=== PATIENT | male | born 1945 | race Caucasian/White ===

== ENCOUNTER → 2016-10-22 | Outpatient (CLI) | payer BC, MEDICARE, OTHER ==
[~2016-10-22] MED LIST: ATACAND HCT 321 TAB PO; ATACAND PO; ATENOLOL25 MG PO; CELEBREX200 MG PO; HCTZ 25MG TAB25 MG PO; HCTZ PO; HYDROCODONE/IBU1 TA1 PO; HYTRIN 2MG CAPSU2 MG PO; LORTAB 7.5/5001 TAB PO; MEDROL 4MG DOSPA4 MG PO; PERCOCET 325 MG1 TA2 PO; PROSCAR 5MG5 MG PO; PROSCAR5 MG PO; PROVENTIL0.09 MG/A1 IH; RANITIDINE150 MG PO; SOMA 350MG350 MG/TAB PO; TENORMIN 2525 MG/TAB PO; TERAZOSIN HCL2 M1 PO; VERAPAMIL HCL180 MG PO; ZANTAC 150MG T150 MG PO; ZOCOR 20MG20 MG PO; ZOCOR20 MG PO
== END ==
LOC: COL.LAB 13:49
DX: M79.605 Pain in left leg (principal)

== ENCOUNTER 2017-11-24 03:11 | Inpatient (IN) | payer BC, MEDICARE, OTHER ==
[~2017-11-24] VITALS: Ht 175.3 cm; Wt 94.6 kg
[~2017-11-24 03:11] MED LIST changes: -HYTRIN 2MG CAPSU2 MG PO; +HYTRIN 5MG C5 MG/CAP PO
[2017-11-24 04:16] LABS: BASO % 0.4 % (0.0-2.0); EOS % 0.2 % (0-4.0); GRAN # 7.7 (1.4-6.5); GRAN % 83.3 % (42.2-75.2); HEMATOCRIT 43.1 % (42.0-52.0); HEMOGLOBIN 14.7 g/dl (13.5-18.0); LYMPH # 0.5 (1.2-3.4); LYMPH % 5.3 % (20.0-51.0); MEAN CELL VOLUME 94 fl (80.0-100.0); MEAN CORPUSCULAR HEMOGLOBIN 32 pg (27.0-31.0); MEAN CORPUSCULAR HGB CONC 34 g/dl (33.0-37.0); MEAN PLATELET VOLUME 10.4 fl (7.4-10.4); MONO % 10.5 % (1.7-9.3); PLATELET COUNT 144 K/mm3 (130-400); RED BLOOD COUNT 4.57 M/mm3 (4.20-5.60); REDCELL DISTRIBUTION WIDTH-CV 13.7 % (11.5-14.5)
[2017-11-24] MEDS ORDERED: NORVASC 5MG5 MG/TAB PO (04:23)
[2017-11-24] MEDS ORDERED: 00186-0372-20 IH (04:23)
[2017-11-24] MEDS ORDERED: TAMBOCOR 1100 MG/TAB PO (04:28)
[2017-11-24] MEDS ORDERED: NEURONTIN300 MG/CAP PO ×2 (04:29)
[2017-11-24] MEDS ORDERED: PRAVACHOL80 MG PO (04:30)
[2017-11-24] MEDS ORDERED: SINGULAIR 110 MG/TAB PO (04:30)
[2017-11-24] MEDS ORDERED: XARELTO20 MG PO (04:31)
[2017-11-24 04:32] LABS: ALANINE AMINOTRANSFERASE 208 U/L (21-72); ALBUMIN 4.1 gm/dL (3.5-5.0); ALKALINE PHOSPHATASE 248 U/L (50-136); ANION GAP 11 mmol/L (7-16); AST,SGOT 148 U/L (15-37); BLOOD UREA NITROGEN 16 mg/dL (9-20); CALCIUM 9.4 mg/dL (8.4-10.2); CARBON DIOXIDE 26 mmol/L (22-30); CHLORIDE 101 mmol/L (98-107); CREATININE, serum 0.99 mg/dL (0.66-1.25); GLUCOSE 152 mg/dL (74-106); LIPASE 53 U/L (23-300); POTASSIUM 3.5 mmol/L (3.4-5.0); SODIUM 139 mmol/L (137-145); TOTAL PROTEIN 7.9 gm/dL (6.4-8.2)
[2017-11-24 04:42] LABS: TROPONIN-I < 0.012 ng/mL (0.000-0.034)
[2017-11-24 05:05] LABS: COLLECTION METHOD CLEAN CATCH
[2017-11-24 05:14] LABS: MUCOUS Present /lpf; PH 5 (5-8); SQUAMOUS EPITHELIAL 0-2 /hpf; URINE APPEARANCE Clear; URINE BACTERIA None Seen /hpf; URINE BILIRUBIN Positive (NEGATIVE); URINE BLOOD Negative (NEGATIVE); URINE CALCIUM OXALATE CRYSTAL Present /hpf; URINE COLOR Amber; URINE GLUCOSE Negative (NEGATIVE); URINE KETONE Negative (NEGATIVE); URINE LEUKOCYTE ESTERASE Negative (NEGATIVE); URINE NITRATE Negative (NEGATIVE); URINE PROTEIN(semi-quant) Negative (NEGATIVE); URINE UROBILINOGEN >=4.0 mg/dL (NEGATIVE)
[2017-11-24 08:33] VITALS: BP 122/73; PULSE 63; TEMP 98.1
[2017-11-24 10:11] LABS: INR 1.8 (0.8-3.0); PROTHROMBIN TIME 20.3 SECONDS (9.7-12.8)
[2017-11-24 11:51] VITALS: BP 124/72; PULSE 68; TEMP 98.1
[2017-11-24 15:31] VITALS: BP 111/66; PULSE 66; TEMP 98.1
[2017-11-24 19:32] VITALS: BP 122/84; PULSE 7; TEMP 98
[2017-11-24 23:23] VITALS: BP 135/75; PULSE 86; TEMP 98.3
[2017-11-25] VITALS (11 sets, daily range): BP systolic 102–158; BP diastolic 52–70; PULSE 69–92; TEMP 97.9–103.3
[2017-11-25 07:14] LABS: BASO % 0.4 % (0.0-2.0); EOS # 0.1 (0.0-0.7); EOS % 0.8 % (0-4.0); GRAN # 6.9 (1.4-6.5); GRAN % 83.3 % (42.2-75.2); HEMATOCRIT 40.4 % (42.0-52.0); HEMOGLOBIN 13.3 g/dl (13.5-18.0); LYMPH # 0.7 (1.2-3.4); LYMPH % 7.9 % (20.0-51.0); MEAN CELL VOLUME 97 fl (80.0-100.0); MEAN CORPUSCULAR HEMOGLOBIN 32 pg (27.0-31.0); MEAN CORPUSCULAR HGB CONC 33 g/dl (33.0-37.0); MEAN PLATELET VOLUME 10.8 fl (7.4-10.4); MONO # 0.6 (0.1-0.6); MONO % 7.2 % (1.7-9.3); PLATELET COUNT 146 K/mm3 (130-400); RED BLOOD COUNT 4.16 M/mm3 (4.20-5.60); REDCELL DISTRIBUTION WIDTH-CV 14.2 % (11.5-14.5)
[2017-11-25 07:26] LABS: ALBUMIN 3.8 gm/dL (3.5-5.0); BILIRUBIN,TOTAL 8.2 mg/dL (0.0-1.0); CALCIUM 8.8 mg/dL (8.4-10.2); CREATININE, serum 1.4 mg/dL (0.66-1.25); POTASSIUM 3.7 mmol/L (3.4-5.0); TOTAL PROTEIN 7.2 gm/dL (6.4-8.2)
[2017-11-25 07:56] LABS: PSA-TOTAL 1.9 ng/mL (0-4)
[2017-11-25 08:04] LABS: COLLECTION METHOD CLEAN CATCH
[2017-11-25 08:12] LABS: MUCOUS Present /lpf; PH 5 (5-8); SQUAMOUS EPITHELIAL None Seen /hpf; URINE APPEARANCE Clear; URINE BACTERIA None Seen /hpf; URINE BILIRUBIN Positive (NEGATIVE); URINE BLOOD Negative (NEGATIVE); URINE COLOR Amber; URINE GLUCOSE Negative (NEGATIVE); URINE KETONE Negative (NEGATIVE); URINE LEUKOCYTE ESTERASE Negative (NEGATIVE); URINE NITRATE Negative (NEGATIVE); URINE PROTEIN(semi-quant) 1+ (NEGATIVE); URINE RBC 0-2 /hpf
[2017-11-25 11:54] LABS: INR 1.2 (0.8-3.0); PROTHROMBIN TIME 13.8 SECONDS (9.7-12.8)
[2017-11-26] VITALS (7 sets, daily range): BP systolic 106–173; BP diastolic 48–87; PULSE 69–100; TEMP 98.2–100.3
[2017-11-26 06:56] LABS: BASO % 0.2 % (0.0-2.0); EOS # 0.1 (0.0-0.7); EOS % 1.3 % (0-4.0); GRAN # 7.8 (1.4-6.5); GRAN % 79.2 % (42.2-75.2); LYMPH # 1.1 (1.2-3.4); LYMPH % 10.6 % (20.0-51.0); MEAN CELL VOLUME 99 fl (80.0-100.0); MEAN CORPUSCULAR HGB CONC 32 g/dl (33.0-37.0); MEAN PLATELET VOLUME 10.8 fl (7.4-10.4); MONO # 0.8 (0.1-0.6); MONO % 8.1 % (1.7-9.3); PLATELET COUNT 128 K/mm3 (130-400); RED BLOOD COUNT 3.41 M/mm3 (4.20-5.60); REDCELL DISTRIBUTION WIDTH-CV 14.3 % (11.5-14.5)
[2017-11-26 07:01] LABS: ALBUMIN 2.9 gm/dL (3.5-5.0); BILIRUBIN,TOTAL 7.2 mg/dL (0.0-1.0); CALCIUM 8.3 mg/dL (8.4-10.2); CREATININE, serum 1.06 mg/dL (0.66-1.25); POTASSIUM 3.5 mmol/L (3.4-5.0); TOTAL PROTEIN 5.8 gm/dL (6.4-8.2)
[2017-11-26 07:07] LABS: HEMATOCRIT 33.6 % (42.0-52.0); HEMOGLOBIN 10.9 g/dl (13.5-18.0); MEAN CORPUSCULAR HEMOGLOBIN 32 pg (27.0-31.0)
[2017-11-27] VITALS (8 sets, daily range): BP systolic 134–157; BP diastolic 64–86; PULSE 63–84; TEMP 98.2–100.5
[2017-11-27 06:45] LABS: BILIRUBIN,TOTAL 7.6 mg/dL (0.0-1.0); CALCIUM 8.4 mg/dL (8.4-10.2); CREATININE, serum 0.94 mg/dL (0.66-1.25); POTASSIUM 3.1 mmol/L (3.4-5.0); TOTAL PROTEIN 6.2 gm/dL (6.4-8.2)
[2017-11-27 06:52] LABS: ALBUMIN 3.1 gm/dL (3.5-5.0)
[2017-11-27 08:56] LABS: BASO # 0.1 (0.0-0.2); BASO % 0.5 % (0.0-2.0); EOS # 0.2 (0.0-0.7); GRAN # 7.2 (1.4-6.5); GRAN % 78.1 % (42.2-75.2); HEMATOCRIT 34.1 % (42.0-52.0); HEMOGLOBIN 11.5 g/dl (13.5-18.0); LYMPH # 0.9 (1.2-3.4); LYMPH % 9.6 % (20.0-51.0); MEAN CELL VOLUME 95 fl (80.0-100.0); MEAN CORPUSCULAR HEMOGLOBIN 32 pg (27.0-31.0); MEAN CORPUSCULAR HGB CONC 34 g/dl (33.0-37.0); MEAN PLATELET VOLUME 11.3 fl (7.4-10.4); MONO # 0.8 (0.1-0.6); MONO % 9.1 % (1.7-9.3); PLATELET COUNT 146 K/mm3 (130-400); RED BLOOD COUNT 3.58 M/mm3 (4.20-5.60); REDCELL DISTRIBUTION WIDTH-CV 14.4 % (11.5-14.5)
[2017-11-27 10:15] LABS: HEMOGLOBIN 11.2 g/dl (13.5-18.0)
[2017-11-27 10:16] LABS: HEMATOCRIT 33.3 % (42.0-52.0)
[2017-11-28 04:12] VITALS: BP 159/90; PULSE 94; TEMP 97.8
[2017-11-28 07:30] LABS: BASO % 0.3 % (0.0-2.0); EOS # 0.1 (0.0-0.7); EOS % 0.5 % (0-4.0); GRAN # 8.5 (1.4-6.5); GRAN % 80.9 % (42.2-75.2); HEMATOCRIT 35.1 % (42.0-52.0); HEMOGLOBIN 11.7 g/dl (13.5-18.0); LYMPH # 0.8 (1.2-3.4); LYMPH % 7.8 % (20.0-51.0); MEAN CELL VOLUME 94 fl (80.0-100.0); MEAN CORPUSCULAR HEMOGLOBIN 31 pg (27.0-31.0); MEAN CORPUSCULAR HGB CONC 33 g/dl (33.0-37.0); MEAN PLATELET VOLUME 10.8 fl (7.4-10.4); MONO % 9.6 % (1.7-9.3); PLATELET COUNT 154 K/mm3 (130-400); RED BLOOD COUNT 3.74 M/mm3 (4.20-5.60); REDCELL DISTRIBUTION WIDTH-CV 14.3 % (11.5-14.5)
[2017-11-28 07:39] LABS: INR 1.1 (0.8-3.0); PROTHROMBIN TIME 12.8 SECONDS (9.7-12.8)
[2017-11-28 07:43] LABS: ALBUMIN 3.2 gm/dL (3.5-5.0); BILIRUBIN,TOTAL 7.8 mg/dL (0.0-1.0); CALCIUM 8.5 mg/dL (8.4-10.2); CREATININE, serum 0.93 mg/dL (0.66-1.25); POTASSIUM 3.5 mmol/L (3.4-5.0); TOTAL PROTEIN 6.6 gm/dL (6.4-8.2)
[2017-11-28 08:00] VITALS: BP 157/75; PULSE 93; TEMP 99.3
[2017-11-28 11:11] VITALS: BP 147/72; PULSE 94; TEMP 98.6
[2017-11-28 16:07] VITALS: BP 175/83; PULSE 76; TEMP 99.1
[2017-11-28 19:37] VITALS: BP 154/76; PULSE 78; TEMP 98.9
[2017-11-28 23:34] VITALS: BP 157/82; PULSE 85; TEMP 100.2
[2017-11-29] VITALS (10 sets, daily range): BP systolic 128–157; BP diastolic 73–89; PULSE 70–76; TEMP 98–98.9
[2017-11-29 06:48] LABS: BASO % 0.2 % (0.0-2.0); EOS # 0.1 (0.0-0.7); EOS % 0.6 % (0-4.0); GRAN # 7.5 (1.4-6.5); GRAN % 79.4 % (42.2-75.2); HEMOGLOBIN 11.2 g/dl (13.5-18.0); LYMPH # 0.8 (1.2-3.4); LYMPH % 8.4 % (20.0-51.0); MEAN CELL VOLUME 92 fl (80.0-100.0); MEAN CORPUSCULAR HEMOGLOBIN 32 pg (27.0-31.0); MEAN CORPUSCULAR HGB CONC 35 g/dl (33.0-37.0); MEAN PLATELET VOLUME 11.1 fl (7.4-10.4); MONO % 10.1 % (1.7-9.3); PLATELET COUNT 166 K/mm3 (130-400); RED BLOOD COUNT 3.53 M/mm3 (4.20-5.60); REDCELL DISTRIBUTION WIDTH-CV 14.6 % (11.5-14.5)
[2017-11-29 07:01] LABS: HEMATOCRIT 32.5 % (42.0-52.0)
[2017-11-29 07:03] LABS: ALBUMIN 3.1 gm/dL (3.5-5.0); BILIRUBIN,TOTAL 9.9 mg/dL (0.0-1.0); CALCIUM 8.7 mg/dL (8.4-10.2); CREATININE, serum 0.91 mg/dL (0.66-1.25); POTASSIUM 3.5 mmol/L (3.4-5.0); TOTAL PROTEIN 6.4 gm/dL (6.4-8.2)
== END 2017-11-29 20:15 | disposition short-term general hospital (02) | DRG 444 ==
LOC: COL.ER 03:11 → SURG 07:53
PROVIDERS: Emergency Medicine; Hospitalist; Internal Medicine Gastroenterology; Nurse Practitioner Family; Physician Assistant; Surgery
PROC: 0FJB8ZZ Inspection of Hepatobiliary Duct, Via Natural or Artificial Opening Endoscopic (ICD-10-PCS; 2017-11-25)
PROC: 0F798DZ Dilation of Common Bile Duct with Intraluminal Device, Via Natural or Artificial Opening Endoscopic (ICD-10-PCS; principal; 2017-11-29 15:00)
DX: K83.8 Other specified diseases of biliary tract (principal); J18.9 Pneumonia, unspecified organism; R17 Unspecified jaundice; D62 Acute posthemorrhagic anemia; K92.1 Melena; N17.9 Acute kidney failure, unspecified; K91.840 Postprocedural hemorrhage of a digestive system organ or structure following a digestive system procedure; J44.0 Chronic obstructive pulmonary disease with (acute) lower respiratory infection; K80.00 Calculus of gallbladder with acute cholecystitis without obstruction; R50.9 Fever, unspecified; N20.0 Calculus of kidney; R31.9 Hematuria, unspecified; I10 Essential (primary) hypertension; I48.91 Unspecified atrial fibrillation; E87.6 Hypokalemia
CPT/HCPCS: 99223-AI; 99233-AI; 99239; A9284; C1769; C2625; G0103; J0456; J1650; J2250; J2270; J2405; J2543; J2704; J3010; J3480; J7030; J7050; J7120; Q9967

== ENCOUNTER 2017-12-15 17:45 | Emergency (ER) | payer BC, MEDICARE, OTHER ==
[~2017-12-15] VITALS: Ht 175.3 cm; Wt 92.3 kg
[~2017-12-15 17:45] MED LIST changes: +00186-0372-20 IH; +NEURONTIN300 MG/CAP PO; +NORVASC 5MG5 MG/TAB PO; +PRAVACHOL80 MG PO; +SINGULAIR 110 MG/TAB PO; +TAMBOCOR 1100 MG/TAB PO; +XARELTO20 MG PO
[2017-12-15 17:53] VITALS: TEMP 98.9
[2017-12-15 18:23] LABS: COLLECTION METHOD CLEAN CATCH
[2017-12-15 18:32] LABS: PROTHROMBIN TIME 11.6 SECONDS (9.7-12.8)
[2017-12-15 18:33] LABS: BASO # 0.1 (0.0-0.2); BASO % 0.7 % (0.0-2.0); EOS # 0.2 (0.0-0.7); GRAN # 6.3 (1.4-6.5); GRAN % 68.3 % (42.2-75.2); HEMATOCRIT 35.1 % (42.0-52.0); HEMOGLOBIN 11.6 g/dl (13.5-18.0); LYMPH # 1.5 (1.2-3.4); LYMPH % 16.8 % (20.0-51.0); MEAN CELL VOLUME 98 fl (80.0-100.0); MEAN CORPUSCULAR HEMOGLOBIN 32 pg (27.0-31.0); MEAN CORPUSCULAR HGB CONC 33 g/dl (33.0-37.0); MEAN PLATELET VOLUME 10.4 fl (7.4-10.4); MONO % 11.1 % (1.7-9.3); PLATELET COUNT 289 K/mm3 (130-400); RED BLOOD COUNT 3.59 M/mm3 (4.20-5.60); REDCELL DISTRIBUTION WIDTH-CV 14.6 % (11.5-14.5)
[2017-12-15 18:34] LABS: PH 6 (5-8); SQUAMOUS EPITHELIAL None Seen /hpf; URINE APPEARANCE Clear; URINE BACTERIA None Seen /hpf; URINE BILIRUBIN Negative (NEGATIVE); URINE BLOOD Negative (NEGATIVE); URINE COLOR Yellow; URINE GLUCOSE Negative (NEGATIVE); URINE KETONE Negative (NEGATIVE); URINE LEUKOCYTE ESTERASE Negative (NEGATIVE); URINE NITRATE Negative (NEGATIVE); URINE PROTEIN(semi-quant) Negative (NEGATIVE); URINE RBC 0-2 /hpf; URINE UROBILINOGEN Negative (NEGATIVE)
[2017-12-15 18:35] LABS: PARTIAL THROMBOPLASTIN TIME 40.5 SECONDS (26.0-37.0)
[2017-12-15 18:40] LABS: ALBUMIN 3.8 gm/dL (3.5-5.0); BILIRUBIN,TOTAL 1.7 mg/dL (0.0-1.0); C-REACTIVE PROTEIN 5.5 mg/dL (0.0-0.9); CALCIUM 9.4 mg/dL (8.4-10.2); CREATININE, serum 1.02 mg/dL (0.66-1.25); TOTAL PROTEIN 7.5 gm/dL (6.4-8.2)
[2017-12-15] MEDS ORDERED: 00186-0372-20 IH (18:47)
[2017-12-15] MEDS ORDERED: LOVENOX 100100 MG/ML SQ (18:48)
[2017-12-15 19:28] VITALS: BP 113/88; PULSE 84
== END 2017-12-15 19:30 | disposition home or self-care (01) ==
LOC: COL.ER 17:45
PROVIDERS: Emergency Medicine
DX: K74.60 Unspecified cirrhosis of liver (principal); C22.9 Malignant neoplasm of liver, not specified as primary or secondary; Z86.19 Personal history of other infectious and parasitic diseases
CPT/HCPCS: J7030

== ENCOUNTER 2018-01-23 13:31 | Emergency (ER) | payer BC, MEDICARE, OTHER ==
[~2018-01-23] VITALS: Ht 170.2 cm; Wt 91.4 kg
[~2018-01-23 13:31] MED LIST changes: +LOVENOX 100100 MG/ML SQ
[2018-01-23 14:16] LABS: HEMOGLOBIN 12.6 g/dl (13.5-18.0); MEAN CELL VOLUME 97 fl (80.0-100.0); MEAN CORPUSCULAR HEMOGLOBIN 32 pg (27.0-31.0); MEAN CORPUSCULAR HGB CONC 33 g/dl (33.0-37.0); MEAN PLATELET VOLUME 10.4 fl (7.4-10.4); PLATELET COUNT 136 K/mm3 (130-400); RED BLOOD COUNT 3.91 M/mm3 (4.20-5.60); REDCELL DISTRIBUTION WIDTH-CV 13.9 % (11.5-14.5)
[2018-01-23] MEDS ORDERED: NEURONTIN100 MG/CAP PO (14:17)
[2018-01-23] MEDS ORDERED: ZANTAC 150MG T150 MG PO (14:20)
[2018-01-23 14:21] LABS: COLLECTION METHOD CLEAN CATCH
[2018-01-23 14:22] LABS: INR 1.1 (0.8-3.0); PROTHROMBIN TIME 12.3 SECONDS (9.7-12.8)
[2018-01-23] MEDS ORDERED: FLOMAX 0.40.4 MG/CAP PO (14:22)
[2018-01-23 14:24] LABS: PARTIAL THROMBOPLASTIN TIME 41.2 SECONDS (26.0-37.0)
[2018-01-23 14:25] LABS: ALBUMIN 3.6 gm/dL (3.5-5.0); BILIRUBIN,TOTAL 0.9 mg/dL (0.0-1.0); CALCIUM 8.7 mg/dL (8.4-10.2); CREATININE, serum 0.94 mg/dL (0.66-1.25); MAGNESIUM 1.9 mg/dL (1.6-2.3); PHOSPHOROUS 1.9 mg/dL (2.5-4.5); POTASSIUM 4.1 mmol/L (3.4-5.0); TOTAL PROTEIN 7.4 gm/dL (6.4-8.2)
[2018-01-23 14:27] LABS: MUCOUS Present /lpf; PH 7 (5-8); SQUAMOUS EPITHELIAL 0-2 /hpf; URINE APPEARANCE Clear; URINE BACTERIA None Seen /hpf; URINE BILIRUBIN Negative (NEGATIVE); URINE BLOOD Negative (NEGATIVE); URINE COLOR Yellow; URINE GLUCOSE Negative (NEGATIVE); URINE KETONE Negative (NEGATIVE); URINE LEUKOCYTE ESTERASE Negative (NEGATIVE); URINE NITRATE Negative (NEGATIVE); URINE PROTEIN(semi-quant) Negative (NEGATIVE); URINE RBC 0-2 /hpf; URINE UROBILINOGEN Negative (NEGATIVE)
[2018-01-23 14:35] LABS: BAND 11 % (0-10); LYMPHOCYTE 3 % (20.0-51.0); NEUTROPHILS 81 % (42.0-75.2); PLATELET ESTIMATE NORMAL (NORMAL)
[2018-01-23 14:59] VITALS: TEMP 99.7
[2018-01-23] MEDS ORDERED: LEVAQUIN 750MG750 M1 PO (16:44)
[2018-01-23 17:40] VITALS: BP 139/64; PULSE 87
== END 2018-01-23 17:40 | disposition home or self-care (01) ==
LOC: COL.ER 13:31
PROVIDERS: Emergency Medicine
DX: R50.9 Fever, unspecified (principal); C22.0 Liver cell carcinoma; I48.91 Unspecified atrial fibrillation; Z98.890 Other specified postprocedural states
CPT/HCPCS: J1956; J7030

== ENCOUNTER → 2018-05-12 | Outpatient (CLI) | payer BC, MEDICARE, OTHER ==
[~2018-05-12] MED LIST changes: +FLOMAX 0.40.4 MG/CAP PO; +LEVAQUIN 750MG750 M1 PO; +NEURONTIN100 MG/CAP PO
== END ==
LOC: COL.LAB 12:16
DX: C22.0 Liver cell carcinoma (principal); R50.9 Fever, unspecified

== ENCOUNTER 2018-06-03 15:44 | Emergency (ER) | payer BC, MEDICARE, OTHER ==
[~2018-06-03] VITALS: Ht 175.3 cm; Wt 93.2 kg
[2018-06-03 15:56] VITALS: TEMP 99
[2018-06-03 16:21] LABS: BASO % 0.1 % (0.0-2.0); EOS % 0.2 % (0-4.0); GRAN # 6.4 (1.4-6.5); GRAN % 74.9 % (42.2-75.2); LYMPH # 1.2 (1.2-3.4); LYMPH % 13.7 % (20.0-51.0); MEAN CELL VOLUME 97 fl (80.0-100.0); MEAN CORPUSCULAR HGB CONC 34 g/dl (33.0-37.0); MEAN PLATELET VOLUME 10.1 fl (7.4-10.4); MONO # 0.9 (0.1-0.6); MONO % 10.7 % (1.7-9.3); PLATELET COUNT 168 K/mm3 (130-400); RED BLOOD COUNT 3.01 M/mm3 (4.20-5.60); REDCELL DISTRIBUTION WIDTH-CV 16.3 % (11.5-14.5)
[2018-06-03 16:26] LABS: HEMATOCRIT 29.1 % (42.0-52.0); HEMOGLOBIN 9.8 g/dl (13.5-18.0); MEAN CORPUSCULAR HEMOGLOBIN 33 pg (27.0-31.0)
[2018-06-03 16:28] LABS: INR 1.1 (0.8-3.0)
[2018-06-03 16:30] LABS: ALBUMIN 2.7 gm/dL (3.5-5.0); BILIRUBIN,TOTAL 6.1 mg/dL (0.0-1.0); C-REACTIVE PROTEIN 6.7 mg/dL (0.0-0.9); CALCIUM 8.7 mg/dL (8.4-10.2); CREATININE, serum 0.87 mg/dL (0.66-1.25); PARTIAL THROMBOPLASTIN TIME 28.6 SECONDS (26.0-37.0); POTASSIUM 3.8 mmol/L (3.4-5.0); TOTAL PROTEIN 6.5 gm/dL (6.4-8.2)
[2018-06-03 16:44] LABS: LACTIC ACID 1.1 mmol/L (0.4-2.0)
[2018-06-03] MEDS ORDERED: HCTZ 25MG TAB25 MG PO (17:11)
[2018-06-03] MEDS ORDERED: MULTI VITAMINS1 TAB PO (17:12)
[2018-06-03] MEDS ORDERED: K-DUR20 MEQ PO (17:14)
[2018-06-03] MEDS ORDERED: PRESERVISION1 SGL PO (17:16)
[2018-06-03] MEDS ORDERED: ZOFRAN 4MG T4 MG/TAB PO (17:18)
[2018-06-03 17:33] LABS: COLLECTION METHOD CLEAN CATCH
[2018-06-03 17:39] LABS: MUCOUS Present /lpf; PH 6 (5-8); SQUAMOUS EPITHELIAL 0-2 /hpf; URINE APPEARANCE Clear; URINE BACTERIA None Seen /hpf; URINE BILIRUBIN Positive (NEGATIVE); URINE BLOOD Negative (NEGATIVE); URINE COLOR Amber; URINE GLUCOSE Negative (NEGATIVE); URINE KETONE Negative (NEGATIVE); URINE LEUKOCYTE ESTERASE Negative (NEGATIVE); URINE NITRATE Negative (NEGATIVE); URINE PROTEIN(semi-quant) Negative (NEGATIVE); URINE RBC 0-2 /hpf
[2018-06-03 18:17] VITALS: BP 101/67; PULSE 79
== END 2018-06-03 18:17 | disposition home or self-care (01) ==
LOC: COL.ER 15:44
PROVIDERS: Emergency Medicine
DX: C22.0 Liver cell carcinoma (principal); R41.82 Altered mental status, unspecified; C79.9 Secondary malignant neoplasm of unspecified site; R17 Unspecified jaundice
CPT/HCPCS: J7030

== ENCOUNTER → 2018-06-27 | Outpatient (CLI) | payer BC, MEDICARE, OTHER ==
[~2018-06-27] MED LIST changes: +K-DUR20 MEQ PO; +MULTI VITAMINS1 TAB PO; +PRESERVISION1 SGL PO; +ZOFRAN 4MG T4 MG/TAB PO
== END ==
LOC: COL.RAD 08:45
DX: C22.0 Liver cell carcinoma (principal)
CPT/HCPCS: A9503